=== PATIENT | male | born 1950 | race Caucasian/White ===

== ENCOUNTER 2025-04-04 07:38 | Outpatient (CLI) | payer MEDICARE, BC, SELFPAY | END 2025-04-04 07:39 | disposition home or self-care (01) | PROVIDERS: PCP Family Medicine; Visit Provider Orthopaedic Surgery | DX: Z01.818 Encounter for other preprocedural examination (principal); M19.011 Primary osteoarthritis, right shoulder | CPT/HCPCS: 73200 ==

== ENCOUNTER 2025-05-01 06:09 | Day surgery (SDC) | payer MEDICARE, BC, SELFPAY ==
[2025-05-01] VITALS (20 sets, daily range): BP systolic 126–177; BP diastolic 67–92; PULSE 68–87; RESP 16–20; TEMP 36.6–37.2; O2SAT 81–98; BMI 28.0
[2025-05-01] MEDS: SODIUM CHLORIDE 0.9 % (FLUSH) 10 ML SYRINGE IVF (07:00)
[2025-05-01] MEDS: LACTATED RINGERS 1000 ML 1,000 ML 100 ML IV ×2 (07:00→10:30)
[2025-05-01] MEDS: MIDAZOLAM HCL 1 MG/ML inj IVP (07:10)
[2025-05-01] MEDS: ACETAMINOPHEN 500 MG TABLET 1000 MG PO (07:10)
[2025-05-01] MEDS: CELECOXIB 200 MG CAPSULE PO (07:10)
[2025-05-01] MEDS: TRANEXAMIC ACID 100 MG/ML INJ 1000 MG IV (07:50)
--- NOTE | 2025-05-01 10:09 | CRLHL7_ITS ---
For Patients: As a result of the Cures Act, medical imaging exams and procedure reports are released immediately into your electronic medical record. You may view this report before your referring provider. If you have questions, please contact your health care provider. Indication: Postop Technique: Two views right shoulder Findings/Impression: Hardware from a right reverse shoulder arthroplasty is in satisfactory position. Bone alignment is normal. No sign of acute fracture. Postop changes are within normal limits. Dictated by Devin Griffin MD @ 05/01/2025 11:38:55 AM (Electronically Signed)
--- NOTE | 2025-05-01 10:47 | P.ANES_ITS ---
Anesthesia Charges Start Date/Time Anesthesia Start Date: 05/01/25 Anesthesia Start Time: 07:34 Stop Date/Time Anesthesia Stop Date: 05/01/25 Anesthesia Stop Time: 10:43 Summary Extremes of Age - Over 70 or under 1: MANAGER TESTING Coding CPT Codes CPT Codes: ANESTH SHOULDER REPLACEMENT - 60276 ([id number]) P2 - PATIENT W/MILD SYST DISEASE, QK - MACHINE RUG CLEANER 2-4 CNCRNT ANES PROC, QX - MANAGER TESTING SVC W/ MD MED DIRECTION Additional Codes: Summary - Extremes of Age - Over 70 or under 1: MANAGER TESTING ([id number])
--- NOTE | 2025-05-01 10:47 | W.ANESCHARGE ---
Anesthesia Charges Start Date/Time Anesthesia Start Date: 05/01/25 Anesthesia Start Time: 07:34 Stop Date/Time Anesthesia Stop Date: 05/01/25 Anesthesia Stop Time: 10:43 Summary Extremes of Age - Over 70 or under 1: BIOSTATISTICS MANAGER Coding CPT Codes CPT Codes: ANESTH SHOULDER REPLACEMENT - 38121 ([id number]) P2 - PATIENT W/MILD SYST DISEASE, QK - CARBONATION EQUIPMENT OPERATOR 2-4 CNCRNT ANES PROC, QX - BIOSTATISTICS MANAGER SVC W/ MD MED DIRECTION Additional Codes: Summary - Extremes of Age - Over 70 or under 1: BIOSTATISTICS MANAGER ([id number])
--- NOTE | 2025-05-01 11:15 | P.ORPRC_ITS ---
Procedure Note Date of procedure: 05/01/25 Procedure: PREOPERATIVE DIAGNOSIS: Right shoulder rotator cuff tear arthropathy POSTOPERATIVE DIAGNOSIS: Right shoulder rotator cuff tear arthropathy NAME OF OPERATION: Right upper extremity reverse shoulder arthroplasty, biceps tenodesis SURGEON: Blayne Garcia MD CONTRACTS REPRESENTATIVE: LUCIO Michaels ANESTHESIA: General endotracheal ESTIMATED BLOOD LOSS: 25 mL COMPLICATIONS: None SPECIMENS: None DRAINS: None PREOPERATIVE ANTIBIOTICS: Ancef 2 grams IMPLANTS: 1. Tornier 29 mm +3 lateralized baseplate, 35 mm central screw 2. 39 mm standard glenosphere 3. 6B humeral stem 4. High eccentric +0 humeral tray 5. Thirty-nine mm +6 polyethylene INDICATIONS: The patient is a 75-year-old with a longstanding history of severe, unrelenting right shoulder pain secondary to rotator cuff tear arthropathy. Despite appropriate nonoperative management, including activity modification, anti-inflammatories, [id number]-rev-[id number] pain medication, physical therapy, and injections they continue to have pain and disability. Operative intervention was offered. The risks, benefits and expected outcomes were discussed in detail. These included but were not limited to: Infection, bleeding, injury to blood vessel or nerve, venous thromboembolism. All questions were answered to their satisfaction. Use of an assistant wrestling coach was necessary throughout the case for patient positioning and safety, soft tissue retraction, and closure. PROCEDURE: General anesthesia was administered. The patient was placed in the lazy beach chair position on the operating room table. The right upper extremity was prepped and draped in the usual sterile fashion. A standard deltopectoral incision was made. Subcutaneous dissection was taken with electrocautery to the deltopectoral interval. The cephalic vein was mobilized, lateral branches were cauterized. The vein was taken medially with the pectoralis. We bluntly entered the deltopectoral interval. We freed up the deltoid. The upper 1/3 of the insertion of the pectoralis was divided with cautery. The static retractor was placed. The clavipectoral fascia and CA ligament were divided. The circumflex vessels were controlled with electrocautery. The biceps was dissected out of the bicipital groove, was tagged with a #2 FiberWire suture and divided proximally. A fiberWire suture was placed in the subscapularis. The subscap was subperiosteally elevated off of the lesser tuberosity. The humeral head was delivered into the wound. The intramedullary humeral cutting guide was placed. We made the cut at the anatomic neck, in 30? of retroversion. Humeral sounds were used to assess the diameter of the canal. The broach was placed and had good rotational stability. The calcar reamer was used and the protective base plate cover was placed. Attention was then turned to the glenoid. Hohmann retractors were placed posteriorly. The labrum and biceps stump were sharply debrided. The origin of the inferior glenohumeral ligaments were subperiosteally released off of the glenoid. The blueprint drill guide was placed. The guide pin was placed. The reamer was used to bleeding bone. The central drill was used x2. The +3 lateralized base plate was placed. This had excellent purchase. Locking screws x 2 were placed. The base plate reamer was used. The glenosphere was placed, the set screw was tightened. Marginal osteophytes were aggressively debrided circumferentially from the glenoid with the osteotome and pituitary rongeur. Attention then returned to the humerus. We placed a high eccentric standard base plate and standard poly. We reduced the shoulder and took it through a range of motion. It was found to be stable with appropriate soft tissue tension. Trial humeral components were removed. A soft tissue biceps tenodesis was done, just distal to the bicipital groove using our previously placed FiberWire suture. We placed #2 FiberWire sutures in the lesser tuberosity for subsequent subscap repair. We assembled the humeral component on the back table. We placed it in the center of our subscapularis repair sutures and tapped it down to our humeral cut. This had excellent purchase. The shoulder was reduced and again was found to be stable with appropriate soft tissue tension. We did a 3 min dilute Betadine solution soak. We irrigated the wound with 3 L of normal saline via pulse lavage. We repaired the subscapularis to the lesser tuberosity with our previously placed FiberWire sutures. The deltopectoral interval was loosely reapproximated with an 0 Vicryl in an interrupted [id number]-eu-eqqky fashion. Subcutaneous tissues were closed with the 2-0 Vicryl and a running 3-0 Monocryl suture. The skin was sealed with glue. A dry dressing and sling were applied. Sponge and needle counts were correct x2. The patient tolerated the procedure well, there were no apparent complications. They were awakened and extubated in the operating room, taken to the postanesthesia care unit in satisfactory condition. PLAN: The patient will be mobilized with physical therapy. The sling will be used for 6 weeks postoperatively. Active range of motion in forward flexion and abduction as tolerates. No external rotation greater than 0? for 6 weeks postoperatively. They will be discharged to home once medically appropriate.
--- NOTE | 2025-05-01 11:41 | SUR.PHASEII ---
Patient awake and alert. Drinking water and eating toast. Denies pain or nausea. States right hand is still numb, especially the thumb.
--- NOTE | 2025-05-01 11:56 | P.NB_ITS ---
Nerve Block Nerve Block Time Seen by Provider: 07:10 Date Seen: 05/01/25 Type of block requested by surgeon for post-operative analgesia: supraclavicular Side: right Time out performed: Yes Verification of patient name: Yes Verification of date of : Yes Site marking: site marked Name of person performing procedure: Negrito Continuous monitoring Was continuous monitoring of O2 sat, B/P, school lunch monitor, recorded every 15 minutes?: Yes Procedure Checklist: sterile prep, needles and gloves Ultrasound guided. Images saved: Yes Medications given in 5ml increments after negative aspiration: Marcaine %: 0.25 mL: 5 and Exparel mL: 10 Needle gauge: 22 Patient tolerated procedure well: Yes Block Charges Block Charge (with Pro Fee): Brachial Plexus Use of Ultrasound Machine for Block: Yes- US Guidance/pain block
--- NOTE | 2025-05-01 12:16 | W.ANESCHARGE ---
Anesthesia Charges Start Date/Time Anesthesia Start Date: 05/01/25 Anesthesia Start Time: 07:34 Stop Date/Time Anesthesia Stop Date: 05/01/25 Anesthesia Stop Time: 10:43 Summary Extremes of Age - Over 70 or under 1: MDA Coding CPT Codes CPT Codes: ANESTH SHOULDER REPLACEMENT - 63879 ([id number]) QK - INSTRUCTIONAL TECHNOLOGY DIRECTOR 2-4 CNCRNT ANES PROC, QX - MACHINE II ENGRAVER SVC W/ MD MED DIRECTION, P2 - PATIENT W/MILD SYST DISEASE Additional Codes: Summary - Extremes of Age - Over 70 or under 1: MDA ([id number])
--- NOTE | 2025-05-01 13:43 | SUR.PHASEII ---
Patient walked to restroom. Unable to void, but felt he could go with a little more water to drink.
== END 2025-05-01 14:28 | disposition home or self-care (01) ==
LOC: OR 07:27
PROVIDERS: PCP Family Medicine; Visit Provider Orthopaedic Surgery
PROC: 0RRJ0JZ Replacement of Right Shoulder Joint with Synthetic Substitute, Open Approach (ICD-10-PCS; CPT 23472; principal; 2025-05-01 07:15)
DX: M75.101 Unspecified rotator cuff tear or rupture of right shoulder, not specified as traumatic (principal); M19.011 Primary osteoarthritis, right shoulder; G89.18 Other acute postprocedural pain
CPT/HCPCS: 23472; 23430; 01638; 64415; 73030; 76942; 97165; 97530; 97535; 99100; A9270; C1713; C1776; J0665; J0666; J0690; J1100; J2250; J2371; J2405; J2704; J2710; J3010; J7120; L3670

== ENCOUNTER 2025-05-14 10:42 | Outpatient (CLI) | payer MEDICARE, BC, SELFPAY ==
--- NOTE | 2025-05-14 11:30 | CRLHL7_ITS ---
For Patients: As a result of the Century Cures Act, medical imaging exams and procedure reports are released immediately into your electronic medical record. You may view this report before your referring provider. If you have questions, please contact your health care provider. INDICATION: Right shoulder replacement, right arm swelling COMPARISON: None. TECHNIQUE: Right upper extremity and neck venous ultrasound performed as well as ultrasound of left internal jugular vein including germain scale/2D, color Doppler, and spectral Doppler imaging including spectral waveform analysis. FINDINGS: The internal jugular, innominate, subclavian, axillary, basilic, cephalic, and brachial veins were patent and negative for thrombus. The left internal jugular vein was also patent and negative for thrombus where seen. Remainder negative. IMPRESSION: No evidence for DVT in the right upper extremity and neck venous system. Dictated by Devin Griffin MD @ 05/14/2025 8:45:27 PM (Electronically Signed)
== END 2025-05-14 10:43 | disposition home or self-care (01) ==
LOC: US 10:43
PROVIDERS: PCP Family Medicine; Visit Provider Physician Assistant
DX: M79.89 Other specified soft tissue disorders (principal); Z96.611 Presence of right artificial shoulder joint
CPT/HCPCS: 93971

== ENCOUNTER 2025-07-18 13:00 | Outpatient (CLI) | payer MEDICARE, BC, SELFPAY | END 2025-07-18 13:01 | disposition home or self-care (01) | PROVIDERS: PCP Family Medicine; Visit Provider Physician Assistant | DX: Z96.611 Presence of right artificial shoulder joint (principal) | CPT/HCPCS: 85025; 85651; 86140; 87070; 87205 ==

== ENCOUNTER 2025-07-19 13:54 | Day surgery (SDC) | payer MEDICARE, BC, SELFPAY ==
[2025-07-19] VITALS (14 sets, daily range): BP systolic 159–180; BP diastolic 84–102; PULSE 84–98; RESP 14–16; TEMP 36.2–37.5; O2SAT 90–96; BMI 29.5
[2025-07-19] MEDS: LACTATED RINGERS 1000 ML 1,000 ML 100 ML IV ×2 (14:10→19:00)
[2025-07-19] MEDS: SODIUM CHLORIDE 0.9 % (FLUSH) 10 ML SYRINGE IVF (14:51)
[2025-07-19] MEDS: VANCOMYCIN 100 MG/ML INJ 500 MG TOPICAL (18:30)
--- NOTE | 2025-07-19 18:34 | W.PM.H&PU ---
History & Physical Update History & Physical Update H&P Reviewed and patient assessed: No changes noted H&P Updates: no changes from yesterday's clinic note.
--- NOTE | 2025-07-19 18:41 | PM.ORPRC ---
Procedure Note Date of procedure: 07/19/25 Procedure: PREOPERATIVE DIAGNOSIS: 1. Right shoulder superficial infection after reverse shoulder arthroplasty POSTOPERATIVE DIAGNOSIS: 1. Right shoulder deep infection with sinus to the skin after reverse shoulder arthroplasty PROCEDURE: 1. Right shoulder excisional debridement of skin, subcutaneous tissue, and including muscle 2. Right shoulder retention of reverse shoulder arthroplasty implants with antibiotic bead placement. 3. Right shoulder closure of wound, multiple layers including subcutaneous and skin-3 cm length SURGEON: Carlos Rose MD. MISSILE FACILITIES REPAIRER: Jasbir Mccullough OPA - Of note, a skilled assistant professor of criminal justice was critical for this case to aid in patient positioning, tissue retraction, limb manipulation/positioning, awareness and protection of critical structures, and closure. ANESTHESIA: General endotracheal anesthetic EBL: 100 mL IMPLANTS: The patient previously had a reverse shoulder arthroplasty placed via Dr. Garcia 05/01/2025 this was a Tornier shoulder system. The implants were retained and not exchange today. We did place calcium sulfate antibiotic beads (5 mL Stimulan mixed with vancomycin powder) COMPLICATIONS: None evident INDICATIONS: The patient is a pleasant 75-year-old male who underwent a right reverse shoulder arthroplasty 05/01/[address] Garcia. The patient reports no specific pain, but noticed a small pustule forming over the last few days. He presented to our [facility] 07/18/2025. In the office, this was lanced and a large volume of blood tinged clear fluid was evacuated. With some expression, there was some cloudy type of fluid also encountered. Cultures of this were obtained. Still pending. Given the concern for potential infection deep, it was recommended to go to the operating room to try to better assess the level of the infection as well as washout any bacterium and respond accordingly. DESCRIPTION OF PROCEDURE: Following a thorough discussion of risks, benefits, and alternatives, consent was obtained and the right shoulder was marked. The patient was brought to the operating room and placed supine on the operating table. Induction of anesthesia was undertaken. 2 g IV Ancef and 1 g tranexamic acid was administered within 1 hr of incision preoperatively. Appropriate time-out was performed identifying proper patient, site, and procedure. The operative extremity was prepped and draped in the appropriate sterile fashion using ChloraPrep after the patient was positioned in the beach chair with head in neutral alignment and all bony prominences well padded. There was an opening approximately 2 cm in length at the beginning of the procedure. This open unhealthy tissue including skin subcutaneous tissue was ellipsed out making this incision initially 3 cm in length. We probed the tissue with various instruments including a curette and found that there was a tract that penetrated medially felt to be primarily in the subcutaneous layer. Further inspection and probing found that there was penetration to the deep part of this right shoulder into the shoulder joint with a curved curette. This was an easy passage without any resistance. There was some cloudy appearing yellowish purulent type of fluid that we encountered in this location. Accordingly, this was thoroughly debrided with a combination of scalpel, rongeur, curette, and lap sponge. We did not identify cephalic vein, but based on the coracoid were able to identify the deltopectoral interval. The deltoid was mobilized from the humerus in the subdeltoid space re emerged. We were able to get into the glenohumeral joint as the subscapularis did not appear to be attached to the humerus. There were FiberWire sutures seen within the humerus. Any FiberWire sutures that were identified were removed with rongeur. We were able to inspect the components of the joint and these were found to be stable within their respective osseous structures of the humeral canal and the glenoid vault. As such, a thorough irrigation normal saline was performed. Further debridement with a curette and rongeur performed. A hydrogen peroxide 3% wash was undertaken. After this, 3 L normal saline was again irrigated. 5 mL of Stimulan with 500 mg of vancomycin powder were mixed and placed into the silicone molds. Once the antibiotic beads had formed, the beads were placed into the right shoulder joint. This included in the posterior joint recess, subdeltoid space, subscapular space, and anterior joint region. Closure was then performed after hemostasis achieved with 2-0 PDS for subcutaneous layer and 3-0 nylon for skin closure. The patient was awoken from anesthesia and transferred to the recovery room in stable condition. A skilled assistant professor of criminal justice was critical for this case to aid in patient positioning, tissue retraction, bone exposure, limb manipulation/positioning, shoulder dislocation/relocation, patient safety, and closure. PLAN: 1. Sling much of the time to operative extremity. May come out of this for prescribed shoulder flexion to max of 90?, pendulums, and elbow/forearm/wrist/digit range of motion as tolerated. 2. Tylenol, Ibuprofen, and/or hydromorphone for analgesics PRN. 3. Early ambulation encouraged. 4. Follow-up in 2 weeks PA visit for wound check and suture removal.
--- NOTE | 2025-07-19 19:01 | P.ANES_ITS ---
Anesthesia Charges Start Date/Time Anesthesia Start Date: 07/19/25 Anesthesia Start Time: 17:07 Stop Date/Time Anesthesia Stop Date: 07/19/25 Anesthesia Stop Time: 18:56 Summary Extremes of Age - Over 70 or under 1: IMPORT MANAGER Coding CPT Codes CPT Codes: ANESTH SKIN EXT/PER/ATRUNK - 93210 ([id number]) P2 - PATIENT W/MILD SYST DISEASE, QZ - IMPORT MANAGER SVC W/O CLINICAL ADMINISTRATOR BY Additional Codes: Summary - Extremes of Age - Over 70 or under 1: IMPORT MANAGER ([id number])
--- NOTE | 2025-07-19 19:01 | W.ANESCHARGE ---
Anesthesia Charges Start Date/Time Anesthesia Start Date: 07/19/25 Anesthesia Start Time: 17:07 Stop Date/Time Anesthesia Stop Date: 07/19/25 Anesthesia Stop Time: 18:56 Summary Extremes of Age - Over 70 or under 1: FIELD REPORTER Coding CPT Codes CPT Codes: ANESTH SKIN EXT/PER/ATRUNK - 66641 ([id number]) P2 - PATIENT W/MILD SYST DISEASE, QZ - FIELD REPORTER SVC W/O SKEINS YARN EXAMINER BY Additional Codes: Summary - Extremes of Age - Over 70 or under 1: FIELD REPORTER ([id number])
--- NOTE | 2025-07-19 23:20 | PC.NURSE ---
Pt alert and oriented x3. Afebrile. Pt reports 3/10 pain in right shoulder, managed with PRN medication. Pt denies chest pain, SOB, headache, dizziness, lightheadedness and N/V. Pt's IV was discontinued catheter intact. Pt is up SBA, voiding, and tolerating a regular diet. RN gave verbal and written discharge instructions to pt and pt's , verbalized understanding. Pt left with .
== END 2025-07-19 21:49 | disposition home or self-care (01) ==
LOC: OR 18:26 → MEDSURG 19:52
PROVIDERS: PCP Family Medicine; Visit Provider Orthopaedic Surgery Sports Medicine
PROC: (CPT 11043; principal; 2025-07-19 15:30)
DX: T81.42XA Infection following a procedure, deep incisional surgical site, initial encounter (principal)
CPT/HCPCS: 11043; 20700; 00400; 01610; 87070; 87075; 87205; 99100; A9270; J0330; J0690; J1100; J1171; J2250; J2405; J2704; J2710; J3010; J3373; J3490; J7120